=== PATIENT | female | born 1980 | race Caucasian/White ===

== ENCOUNTER 2017-02-10 10:15 | Emergency (ER) | payer SELFPAY ==
[~2017-02-10] VITALS: Ht 162.6 cm; Wt 56.7 kg
[~2017-02-10 10:15] MED LIST: NITR100C62 PO; ONDA4TAB10 SL
--- NOTE | 2017-02-10 10:49 | PHYS DOC ---
Past Medical History Past Medical History: Anemia, Depression, Kidney Stone, Other Additional Past Medical Histor: Hypoglycemia Past Surgical History: Tubal ligation Alcohol Use: Occasionally Drug Use: None Adult General Chief Complaint Chief Complaint: NAUSEA/VOMITING/DIARRHA HPI HPI Patient is a 37 year old female with a history of anemia, kidney stones, who presents today with mild right upper, mid, and lower abdominal pain that began one week ago. Patient is also complaining of intermittent episodes of nausea and vomiting for one week. She denies any chance she is , she states she 's had a tubal ligation. Denies any urgency frequency dysuria. Denies any diarrhea. Denies any hematemesis. Denies any unusual vaginal discharge or concerns for STDs. Review of Systems Review of Systems Constitutional: Denies fever or chills [] Eyes: Denies change in visual acuity, redness, or eye pain [] HENT: Denies nasal congestion or sore throat [] Respiratory: Denies cough or shortness of breath [] Cardiovascular: No additional information not addressed in HPI [] GI: mild right upper, mid, and lower abdominal pain with nausea and vomiting : Denies dysuria or hematuria [] Musculoskeletal: Denies back pain or joint pain [] Integument: Denies rash or skin lesions [] Neurologic: Denies headache, focal weakness or sensory changes [] Endocrine: Denies polyuria or polydipsia [] Current Medications Current Medications Current Medications Medications (Trade) Dose Ordered Sig/[facility] Start Time Stop Time Status Last Admin Dose Admin Famotidine (Pepcid) 20 mg 1X ONCE 02/10/17 11:00 02/10/17 11:01 DC 02/10/17 10:50 20 MG Info (Do NOT chart on this entry -- for MONITORING) 1 each PRN DAILY PRN 02/10/17 11:15 02/12/17 11:14 Iohexol (Omnipaque 240 Mg/ml) 30 ml 1X ONCE 02/10/17 11:30 02/10/17 11:31 DC Iohexol (Omnipaque 300 Mg/ml) 75 ml 1X ONCE 02/10/17 11:30 02/10/17 11:31 UNV Morphine Sulfate 5 mg 1X ONCE 02/10/17 11:00 02/10/17 11:01 DC 02/10/17 12:09 5 MG Ondansetron HCl (Zofran) 4 mg 1X ONCE 02/10/17 11:00 02/10/17 11:01 DC 02/10/17 10:51 4 MG Sodium Chloride 1,000 ml @ 1,000 mls/hr 1X ONCE 02/10/17 11:00 02/10/17 11:59 DC 02/10/17 10:50 1,000 MLS/HR Allergies Allergies Allergies Coded Allergies Type Severity Reaction Last Updated Verified latex Allergy Intermediate redness and swelling 11/01/14 No Physical Exam Physical Exam Constitutional: Well developed, well nourished, no acute distress, non-toxic appearance. [] HENT: Normocephalic, atraumatic, bilateral external ears normal, oropharynx moist, no oral exudates, nose normal. [] Eyes: PERRLA, EOMI, conjunctiva normal, no discharge. [] Neck: Normal range of motion, no tenderness, supple, no stridor. [] Cardiovascular:Heart rate regular rhythm, no murmur [] Lungs & Thorax: Bilateral breath sounds clear to auscultation [] Abdomen: Bowel sounds normal, soft, diffuse right sided abdominal tenderness both upper and lower with negative Garcia sign, negative psoas sign, negative obturator sign , no masses, no pulsatile masses. [] Skin: Warm, dry, no erythema, no rash. [] Back: No tenderness, no CVA tenderness. [] Extremities: No tenderness, no cyanosis, no clubbing, ROM intact, no edema. [] Neurologic: Alert and oriented X 3, normal motor function, normal sensory function, no focal deficits noted. [] Psychologic: Affect normal, judgement normal, mood normal. [] Current Patient Data Vital Signs Vital Signs Date Time Temp Pulse Resp B/P (MAP) Pulse Ox O2 Delivery O2 Flow Rate FiO2 02/10/17 12:31 Room Air 02/10/17 12:09 16 99 02/10/17 11:49 70 85/46 (59) 02/10/17 10:24 98.2 98.2 Lab Values Laboratory Tests Test 02/10/17 10:36 02/10/17 10:59 02/10/17 11:08 02/10/17 12:00 White Blood Count 6.6 x10^3/uL (4.0-11.0) Red Blood Count 4.21 x10^6/uL (3.50-5.40) Hemoglobin 12.6 g/dL (12.0-15.5) Hematocrit 35.6 % (36.0-47.0) L Mean Corpuscular Volume 85 fL (79-100) Mean Corpuscular Hemoglobin 30 pg (25-35) Mean Corpuscular Hemoglobin Concent 35 g/dL (31-37) Red Cell Distribution Width 12.9 % (11.5-14.5) Platelet Count 189 x10^3/uL (140-400) Neutrophils (%) (Auto) 73 % (31-73) Lymphocytes (%) (Auto) 13 % (24-48) L Monocytes (%) (Auto) 13 % (0-9) H Eosinophils (%) (Auto) 1 % (0-3) Basophils (%) (Auto) 0 % (0-3) Neutrophils # (Auto) 4.8 x10^3uL (1.8-7.7) Lymphocytes # (Auto) 0.8 x10^3/uL (1.0-4.8) L Monocytes # (Auto) 0.8 x10^3/uL (0.0-1.1) Eosinophils # (Auto) 0.1 x10^3/uL (0.0-0.7) Basophils # (Auto) 0.0 x10^3/uL (0.0-0.2) Sodium Level 140 mmol/L (136-145) Potassium Level 3.8 mmol/L (3.5-5.1) Chloride Level 104 mmol/L (98-107) Carbon Dioxide Level 29 mmol/L (21-32) Anion Gap 7 (6-14) 16 mmol/L (6-14) H Blood Urea Nitrogen 12 mg/dL (7-20) Creatinine 0.8 mg/dL (0.6-1.0) Estimated GFR (Cockcroft-Gault) 80.7 BUN/Creatinine Ratio 15 (6-20) Glucose Level 132 mg/dL (70-99) H 124 mg/dL (70-99) H Calcium Level 9.2 mg/dL (8.5-10.1) Total Bilirubin 0.4 mg/dL (0.2-1.0) Aspartate Amino Transferase (AST) 16 U/L (15-37) Alanine Aminotransferase (ALT) 20 U/L (14-59) Alkaline Phosphatase 63 U/L (46-116) Total Protein 8.1 g/dL (6.4-8.2) Albumin 3.9 g/dL (3.4-5.0) Albumin/Globulin Ratio 0.9 (1.0-1.7) L Lipase 105 U/L (73-393) Ethyl Alcohol Level < 10 mg/dL (0-10) POC Hemoglobin 12.2 g/dL (12-15) POC Hematocrit 36 % (36-40) POC Sodium 140 mmol/L (135-145) POC Potassium 3.7 mmol/L (3.5-5.0) POC Chloride 102 mmol/L (98-110) POC Total CO2 26 mmol/L (23-32) POC Blood Urea Nitrogen 10 mg/dL (8-26) POC Creatinine 0.8 mg/dL (0.5-1.4) POC Ionized Calcium (Adama) 1.29 mmol/L (1.13-1.32) POC Urine HCG, Qualitative Hcg negative (Negative) Urine Collection Type Unknown Urine Color Yellow Urine Clarity Clear Urine pH 6.0 Urine Specific Jewett 1.015 Urine Protein Negative mg/dL (NEG-TRACE) Urine Glucose (UA) Negative mg/dL (NEG) Urine Ketones (Stick) Negative mg/dL (NEG) Urine Blood Trace (NEG) Urine Nitrite Negative (NEG) Urine Bilirubin Negative (NEG) Urine Urobilinogen Dipstick 0.2 mg/dL (0.2 mg/dL) Urine Leukocyte Esterase Trace (NEG) Urine RBC 3-5 /HPF (0-2) Urine WBC 5-10 /HPF (0-4) Urine Squamous Epithelial Cells Mod /LPF Urine Bacteria Few /HPF (0-FEW) Urine Opiates Screen Neg (NEG) Urine Methadone Screen Neg (NEG) Urine Barbiturates Neg (NEG) Urine Phencyclidine Screen Neg (NEG) Urine Amphetamine/Methamphetamine Neg (NEG) Urine Benzodiazepines Screen Neg (NEG) Urine Cocaine Screen Neg (NEG) Urine Cannabinoids Screen Neg (NEG) Urine Ethyl Alcohol Neg (NEG) Laboratory Tests 02/10/17 10:36 Laboratory Tests 02/10/17 10:36 02/10/17 10:59 EKG EKG [] Radiology/Procedures Radiology/Procedures []PROCEDURE: CT ABD PELV W/ IV CONTRST ONLY CT of the abdomen and pelvis with contrast, 02/10/2017: History: Abdominal pain on the right Multidetector CT imaging was performed following an IV bolus injection of iodinated contrast material. No oral contrast material was administered for this study. Comparison is made to an exam from 11/01/2014. No hepatic abnormality is detected. The gallbladder is somewhat contracted. No gallstones are seen. The pancreas is unremarkable. The spleen is within normal limits in size. No renal or adrenal abnormality is detected. No abdominal or pelvic adenopathy is seen. The uterus is deviated to the right of midline. There is a 1.4 cm low density structure with and enhancing rim in the left adnexa which is probably an ovarian cyst. There is mildly prominent uterine vascularity on the left. The bowel loops are not dilated. There is moderate amount stool in the colon. A portion of the appendix is visualized and it shows no abnormality. No free fluid or free air is evident in the abdomen or pelvis. IMPRESSION: No acute abdominal or pelvic abnormality is detected. PQRS Compliance Statement: One or more of the following individualized dose reduction techniques were utilized for this examination: 1. Automated exposure control 2. Adjustment of the mA and/or kV according to patient size 3. Use of iterative reconstruction technique DICTATED and SIGNED BY: DILCIA GUILLEN MD DATE: 02/10/17 121 Course & Med Decision Making Course & Med Decision Making Pertinent Labs and Imaging studies reviewed. (See chart for details) Patient is in the ED with complaints of right upper, mid, and lower abdominal pain with intermittent episodes of nausea and vomiting for week. Negative urine hCG, urine analysis is negative for infection, CBC CMP lipase with no acute findings. Drug screen is negative. CT of the abdomen and pelvic was negative for any acute findings but noted for left ovarian cyst as well as moderate amount of stool in the colon. Recommended mag citrate to this patient. Recommended following up with an OB/ ENGINEERING DESIGN SUPERVISOR for the left ovarian cyst. Patient is in no distress. She was discharged in stable condition. Dragon Disclaimer Dragon Disclaimer This electronic medical record was generated, in whole or in part, using a voice recognition dictation system. Departure Departure Impression: Primary Impression: Abdominal pain Additional Impressions: Left ovarian cyst Nausea and vomiting Constipation Disposition: 01 HOME, SELF-CARE Condition: STABLE Referrals: SHAYE CALLOWAY MD (PCP) follow up in one week CASPER NAVARRO Jr, MD follow up in one week for ovarian cyst CARON HARDING MD follow up in one week Patient Instructions: Constipation, Adult, Nausea and Vomiting, [id number], Ovarian Cyst, [id number] Additional Instructions: You were seen in the emergency room for abdominal pain. Your lab work is negative for any acute findings. Your CT of the abdomen and pelvic was negative for any acute findings, but noted to have a left ovarian cyst as well as moderate amount of stool in the colon. Consider using a bowel prep like magnesium citrate. Consider taking MiraLAX every day to prevent constipation. Follow up with an STOCK BROKER for the ovarian cyst and PCP for abdominal pain or GI doctor provided. Scripts Polyethylene Glycol 3350 (MIRALAX) 17 Gm Powd.pack 1 PACKET PO DAILY, #30 PACKET 3 Refills Prov: ANNERYAN CEDILLO LAWRENCE 02/10/17 Dicyclomine Hcl (DICYCLOMINE HCL) 20 Mg Tablet 1 TAB PO TID, #30 TAB 1 Refill Prov: JULIORYAN LAWRENCE 02/10/17 Ondansetron (ZOFRAN ODT) 4 Mg Tab.rapdis 1 TAB SL Q8HRS, #15 TAB Prov: RYAN KIM APRN 02/10/17 Problem Qualifiers Primary Impression: Abdominal pain Abdominal location: right lower quadrant Qualified Codes: R10.31 - Right lower quadrant pain Additional Impressions: Nausea and vomiting Vomiting type: unspecified Vomiting Intractability: non-intractable Qualified Codes: R11.2 - Nausea with vomiting, unspecified Constipation Constipation type: unspecified constipation type Qualified Codes: K59.00 - Constipation, unspecified ANNERYAN CEDILLO LAWRENCE Feb 10, 2017 10:49
[2017-02-10 10:58] LABS: BASO % 0 % (0-3); EOS % 1 % (0-3); HEMATOCRIT 35.6 % (36.0-47.0); HEMOGLOBIN 12.6 g/dL (12.0-15.5); LYMPH # 0.8 x10^3/uL (1.0-4.8); LYMPH % 13 % (24-48); MEAN CORPUSCULAR HEMOGLOBIN 30 pg (25-35); MEAN CORPUSCULAR HGB CONC 35 g/dL (31-37); MEAN CORPUSCULAR VOLUME 85 fL (79-100); MONO % 13 % (0-9); NEUT % 73 % (31-73); PLATELET COUNT 189 x10^3/uL (140-400); RED BLOOD COUNT 4.21 x10^6/uL (3.50-5.40); RED CELL DISTRIBUTION WIDTH 12.9 % (11.5-14.5); WHITE BLOOD COUNT 6.6 x10^3/uL (4.0-11.0)
[2017-02-10] MEDS ORDERED: FAMOTIDINE 20 MG/2 ML VIAL IVP ONE (11:00)
[2017-02-10] MEDS ORDERED: IV NORMAL SALINE 1000ML BAG 1,000 ML IV ONE (11:00)
[2017-02-10] MEDS ORDERED: ONDANSETRON PF 4 MG/2 ML VIAL. IV ONE (11:00)
[2017-02-10] MEDS ORDERED: MORPHINE SULFATE 10 MG/ML VIAL. IV ONE (11:00)
[2017-02-10 11:03] LABS: POTASSIUM ISTAT 3.7 mmol/L (3.5-5.0)
[2017-02-10 11:14] LABS: CALCIUM 9.2 mg/dL (8.5-10.1); CREATININE 0.8 mg/dL (0.6-1.0); GFR 80.7; POTASSIUM 3.8 mmol/L (3.5-5.1)
[2017-02-10] MEDS ORDERED: CONTRAST GIVEN MC PRN (11:15)
[2017-02-10 11:21] LABS: ALBUMIN 3.9 g/dL (3.4-5.0); ALBUMIN/GLOBULIN RATIO 0.9 (1.0-1.7); TOTAL BILIRUBIN 0.4 mg/dL (0.2-1.0); TOTAL PROTEIN 8.1 g/dL (6.4-8.2)
[2017-02-10] MEDS ORDERED: IOHEXOL 300 MG/ML 75 ML VIAL IV ONE ×2 (11:30)
[2017-02-10] MEDS ORDERED: IOHEXOL 240 MG/ML 50ML VIAL. PO ONE (11:30)
[2017-02-10 12:11] LABS: BILIRUBIN,URINE NEGATIVE (NEG); GLUCOSE,URINE NEGATIVE (NEG); NITRITE,URINE NEGATIVE (NEG); PROTEIN,URINE NEGATIVE (NEG-TRACE); UROBILINOGEN,URINE 0.2 mg/dL (0.2 mg/dL)
[2017-02-10 12:18] LABS: BARBITURATES NEG (NEG); BENZODIAZEPINES NEG (NEG); CANNABINOIDS NEG (NEG); COCAINE NEG (NEG); METHADONE NEG (NEG); OPIATES NEG (NEG); PHENCYCLIDINE NEG (NEG); SQUAMOUS EPITHELIAL CELL,UR MOD /LPF
[2017-02-10 12:19] LABS: BACTERIA,URINE FEW /HPF (0-FEW)
--- NOTE | 2017-02-10 12:23 | RAD ---
CT of the abdomen and pelvis with contrast, 02/10/2017: History: Abdominal pain on the right Multidetector CT imaging was performed following an IV bolus injection of iodinated contrast material. No oral contrast material was administered for this study. Comparison is made to an exam from 11/01/2014. No hepatic abnormality is detected. The gallbladder is somewhat contracted. No gallstones are seen. The pancreas is unremarkable. The spleen is within normal limits in size. No renal or adrenal abnormality is detected. No abdominal or pelvic adenopathy is seen. The uterus is deviated to the right of midline. There is a 1.4 cm low density structure with and enhancing rim in the left adnexa which is probably an ovarian cyst. There is mildly prominent uterine vascularity on the left. The bowel loops are not dilated. There is moderate amount stool in the colon. A portion of the appendix is visualized and it shows no abnormality. No free fluid or free air is evident in the abdomen or pelvis. IMPRESSION: No acute abdominal or pelvic abnormality is detected. PQRS Compliance Statement: One or more of the following individualized dose reduction techniques were utilized for this examination: 1. Automated exposure control 2. Adjustment of the mA and/or kV according to patient size 3. Use of iterative reconstruction technique
[2017-02-10] MEDS ORDERED: DICY20TA3 PO (12:49)
[2017-02-10] MEDS ORDERED: ONDA4TAB10 SL (12:49)
[2017-02-10] MEDS ORDERED: POLY17PO29 PO (12:49)
[2017-02-10 13:00] VITALS: BP 91/50
== END 2017-02-10 13:11 | disposition home or self-care (01) ==
LOC: ER 10:15
DX: N83.202 Unspecified ovarian cyst, left side (principal); K59.00 Constipation, unspecified; Z87.442 Personal history of urinary calculi; Z86.2 Personal history of diseases of the blood and blood-forming organs and certain disorders involving the immune mechanism; Z91.040 Latex allergy status
CPT/HCPCS: 36415; 74177; 80047; 80053; 80307; 81001; 81025; 83690; 85027; 96361; 96374; 96375; 99285; G0480; J2270; J2405; J7030; Q9967; S0028; G0479

== ENCOUNTER 2017-02-14 08:37 | Emergency (ER) | payer SELFPAY ==
[~2017-02-14] VITALS: Ht 162.6 cm; Wt 59.0 kg
[~2017-02-14 08:37] MED LIST changes: +DICY20TA3 PO; +POLY17PO29 PO
[2017-02-14] MEDS ORDERED: IV NORMAL SALINE 1000ML BAG 1,000 ML IV ONE (09:30)
[2017-02-14] MEDS ORDERED: ONDANSETRON PF 4 MG/2 ML VIAL. IV ONE (09:30)
[2017-02-14] MEDS ORDERED: LIDO:MAALOX:BENADRYL 1:1:1 180 ML BOTTLE. PO ONE ×2 (09:30→10:30)
[2017-02-14 10:39] VITALS: BP 108/60
[2017-02-14] MEDS ORDERED: IBUPROFEN 800 MG TABLET. PO ONE (11:15)
[2017-02-14] MEDS ORDERED: TETR250C3 PO (11:37)
[2017-02-14] MEDS ORDERED: HYDR-971 PO (11:37)
--- NOTE | 2017-02-14 11:38 | PHYS DOC ---
Past Medical History Past Medical History: Anemia, Depression, Kidney Stone, Other Additional Past Medical Histor: Hypoglycemia Past Surgical History: Tubal ligation Alcohol Use: Occasionally Drug Use: None Adult General Chief Complaint Chief Complaint: DENTAL PROBLEM HPI HPI Patient is a 37 year old female who drove her cell to the ED with the complaint that her gums hurt and are very swollen, she's had a fever, and nausea and vomiting. Her gums have been hurting for a few days, they're very swollen, they're painful. No pain goes through her mouth into her throat and into her neck and into both ears. She's had fever and also has dry heaves and vomiting. She's never had this before. She has not taken any medications for this. She is miserable from the pain mostly. She was seen recently with abdominal pain and found to have an ovarian cyst. She has not been on antibiotics recently. Review of Systems Review of Systems Constitutional: As in history of present illness Eyes: Denies change in visual acuity, redness, or eye pain [] HENT: As in history of present illness GI: Nausea and vomiting as in history of present illness Current Medications Current Medications Current Medications Medications (Trade) Dose Ordered Sig/[facility] Start Time Stop Time Status Last Admin Dose Admin Ibuprofen (Motrin) 800 mg 1X ONCE 02/14/17 11:15 02/14/17 11:16 DC 02/14/17 11:17 800 MG Multi-Ingredient Mouthwash/Gargle (Magic Mouthwash) 30 ml 1X ONCE 02/14/17 10:30 02/14/17 10:31 DC 02/14/17 10:30 30 ML Ondansetron HCl (Zofran) 4 mg 1X ONCE 02/14/17 09:30 02/14/17 09:31 DC 02/14/17 09:52 4 MG Sodium Chloride 1,000 ml @ 1,000 mls/hr 1X ONCE 02/14/17 09:30 02/14/17 10:29 DC 02/14/17 09:52 1,000 MLS/HR Allergies Allergies Allergies Coded Allergies Type Severity Reaction Last Updated Verified latex Allergy Intermediate redness and swelling 11/01/14 No Physical Exam Physical Exam Constitutional: Well developed, well nourished, having dry heaves, appears uncomfortable HENT: Normocephalic, atraumatic, bilateral external ears normal, bilateral EACs and bilateral TMs normal. Lips normal, gums are diffusely significantly swollen and appear consistent with gingivitis. There is no localized area of abscess or other lesion. Teeth are in moderate condition. Tongue normal, tonsils, uvula, soft palate, oropharynx normal in appearance. Eyes: conjunctiva normal, no discharge. [] Neck: Normal range of motion, diffusely tender lymphadenopathy submandibular and anterior cervical bilaterally Cardiovascular:Heart rate regular rhythm, no murmur [] Lungs & Thorax: Bilateral breath sounds clear to auscultation [] Skin: Warm, dry, no erythema, no rash. [] Extremities: No tenderness, no cyanosis, no clubbing, ROM intact, no edema. [] Neurologic: Alert and oriented X 3, normal motor function, normal sensory function, no focal deficits noted. [] Current Patient Data Vital Signs Vital Signs Date Time Temp Pulse Resp B/P (MAP) Pulse Ox O2 Delivery O2 Flow Rate FiO2 02/14/17 10:39 88 22 108/60 (76) 97 Room Air 02/14/17 09:00 99.4 99.4 EKG EKG [] Radiology/Procedures Radiology/Procedures [] Course & Med Decision Making Course & Med Decision Making Pertinent Labs and Imaging studies reviewed. (See chart for details) 37-year-old female presents with acute onset of fulminant gingivitis, also fever , vomiting, which I do attribute to the gingivitis infection. She was given IV fluids and nausea medications in the ED. She felt better. We will discharge her with antibiotics and pain meds with a recommendation for dental follow-up. Addendum: I originally wrote her for tetracycline, but the pharmacist called me and they do not have that so we switch that to doxycycline 100 mg twice a day for 10 days. [] Dragon Disclaimer Dragon Disclaimer This electronic medical record was generated, in whole or in part, using a voice recognition dictation system. Departure Departure Impression: Primary Impression: Gingivitis Additional Impressions: Nausea & vomiting Dehydration Disposition: 01 HOME, SELF-CARE Condition: IMPROVED Referrals: SHAYE CALLOWAY MD (PCP) Patient Instructions: Gingivitis, [id number] Additional Instructions: It's very important to follow up with a dentist as soon as possible. Call tomorrow for an appointment. We will treat with an antibiotic, tetracycline. It's important that you feel this right away and take 4 times a day. For pain, ibuprofen [id number], or if needed, I prescribed hydrocodone, which is an opiate and will be sedating and constipating. Do not take while driving. Use sparingly. Scripts Hydrocodone/Apap 5-325 (NORCO 5-325 TABLET) 1 Each Tablet 1-2 TAB PO Q4-6HRS for dental pain, #10 TAB Prov: JAXSON JUAREZ MD 02/14/17 Tetracycline Hcl (TETRACYCLINE HCL) 250 Mg Capsule 250 MG PO QID for GINGIVITIS for 10 Days, #40 CAP Prov: JAXSON JUAREZ MD 02/14/17 Problem Qualifiers JAXSON JUAREZ MD Feb 14, 2017 11:38
== END 2017-02-14 11:47 | disposition home or self-care (01) ==
LOC: ER 08:37
DX: K05.10 Chronic gingivitis, plaque induced (principal); R11.2 Nausea with vomiting, unspecified; E86.0 Dehydration; R10.9 Unspecified abdominal pain; F32.9 Major depressive disorder, single episode, unspecified; Z91.040 Latex allergy status; Z87.442 Personal history of urinary calculi
CPT/HCPCS: 96361; 96374; 99284; J2405; J7030

== ENCOUNTER → 2017-08-25 | Outpatient (CLI) | payer OTHER | END | disposition home or self-care (01) | LOC: US 08:49 | DX: R10.9 Unspecified abdominal pain (principal) | CPT/HCPCS: 76705 ==

== ENCOUNTER → 2017-09-24 | Outpatient (CLI) | payer OTHER ==
[2017-09-24] MEDS: SINCALIDE 1.22 MCG in IV NORMAL SALINE 50ML 30 ML IV (10:43)
== END | disposition home or self-care (01) ==
LOC: NM 08:53
DX: R10.11 Right upper quadrant pain (principal); R11.2 Nausea with vomiting, unspecified
CPT/HCPCS: 78226; 96374; 96375; A9537; J2805

== ENCOUNTER 2018-11-04 22:30 | Emergency (ER) | payer OTHER ==
[~2018-11-04] VITALS: Ht 160 cm; Wt 63.5 kg
[~2018-11-04 22:30] MED LIST changes: +HYDR-3164 PO; +TETR250C75 PO
--- NOTE | 2018-11-04 23:28 | PHYS DOC ---
Past Medical History Past Medical History: Anemia, Depression, Kidney Stone, Other Additional Past Medical Histor: Hypoglycemia Past Surgical History: Tubal ligation Alcohol Use: Occasionally Drug Use: None Adult General Chief Complaint Chief Complaint: CHEST PAIN HPI HPI Patient is a 38 year old female who presents with chest pain and shortness of breath. Patient states that she was just standing up in the hallway around eight o'clock tonight when she developed chest tightness, palpitations, and shortness of breath. Patient states that she has had similar episodes in the past, however, they were not this severe which prompted her to come to the ED for an evaluation. Patient further describes the pain as a constant pressure sensation which she currently rates to be 9/10. She states that the chest pain radiates to her left shoulder. Patient reports nausea but denies vomiting. Patient states that her symptoms are worse with movement. Denies any alleviating factors. Patient states that she is currently under a significant amount of stress and is feeling very anxious. Review of Systems Review of Systems Constitutional: Denies fever or chills Eyes: Denies change in visual acuity or eye pain HENT: Denies nasal congestion or sore throat Respiratory: Denies cough. Reports shortness of breath. Cardiovascular: Reports chest pain and palpitations GI: Denies abdominal pain, vomiting, or diarrhea : Denies dysuria or hematuria Musculoskeletal: Denies back pain or joint pain Integument: Denies rash or skin lesions Neurologic: Denies focal weakness or sensory changes Complete systems were reviewed and found to be within normal limits, except as documented in this note. Current Medications Current Medications Current Medications Medications (Trade) Dose Ordered Sig/[facility] Start Time Stop Time Status Last Admin Dose Admin Lorazepam (Ativan) 0.5 mg 1X ONCE 11/04/18 23:45 11/04/18 23:46 DC 11/04/18 23:59 0.5 MG Sodium Chloride 500 ml @ 500 mls/hr 1X ONCE 11/05/18 01:15 11/05/18 02:14 DC 11/05/18 01:15 500 MLS/HR Allergies Allergies Allergies Coded Allergies Type Severity Reaction Last Updated Verified latex Allergy Intermediate redness and swelling 11/01/14 No Physical Exam Physical Exam Constitutional: Well developed, well nourished, no acute distress, non-toxic appearance. HENT: Normocephalic, atraumatic, oropharynx moist, nose normal. Eyes: PERRL, conjunctiva normal, no discharge. Neck: Normal range of motion, supple, no stridor. Cardiovascular: Heart rate regular rhythm, no murmur Lungs & Thorax: Bilateral breath sounds clear to auscultation Abdomen: Soft, no tenderness on palpation. Skin: Warm, dry, no rash. Back: No tenderness, no CVA tenderness. Extremities: No tenderness, ROM intact, no edema. Neurologic: Alert and oriented X3, normal motor function, normal sensory function, no focal deficits noted. Psychologic: Affect anxious. Speech normal. Current Patient Data Vital Signs Vital Signs Date Time Temp Pulse Resp B/P (MAP) Pulse Ox O2 Delivery O2 Flow Rate FiO2 11/05/18 02:31 74 101/55 (70) 99 11/04/18 22:43 98.3 18 Room Air 98.3 Lab Values Laboratory Tests Test 11/04/18 22:40 11/05/18 01:15 White Blood Count 7.4 x10^3/uL (4.0-11.0) Red Blood Count 4.02 x10^6/uL (3.50-5.40) Hemoglobin 11.5 g/dL (12.0-15.5) L Hematocrit 34.2 % (36.0-47.0) L Mean Corpuscular Volume 85 fL (79-100) Mean Corpuscular Hemoglobin 29 pg (25-35) Mean Corpuscular Hemoglobin Concent 34 g/dL (31-37) Red Cell Distribution Width 13.0 % (11.5-14.5) Platelet Count 218 x10^3/uL (140-400) Neutrophils (%) (Auto) 67 % (31-73) Lymphocytes (%) (Auto) 24 % (24-48) Monocytes (%) (Auto) 6 % (0-9) Eosinophils (%) (Auto) 2 % (0-3) Basophils (%) (Auto) 1 % (0-3) Neutrophils # (Auto) 5.0 x10^3uL (1.8-7.7) Lymphocytes # (Auto) 1.8 x10^3/uL (1.0-4.8) Monocytes # (Auto) 0.5 x10^3/uL (0.0-1.1) Eosinophils # (Auto) 0.1 x10^3/uL (0.0-0.7) Basophils # (Auto) 0.0 x10^3/uL (0.0-0.2) Sodium Level 138 mmol/L (136-145) Potassium Level 3.9 mmol/L (3.5-5.1) Chloride Level 100 mmol/L (98-107) Carbon Dioxide Level 26 mmol/L (21-32) Anion Gap 12 (6-14) Blood Urea Nitrogen 18 mg/dL (7-20) Creatinine 0.8 mg/dL (0.6-1.0) Estimated GFR (Cockcroft-Gault) 80.3 BUN/Creatinine Ratio 23 (6-20) H Glucose Level 101 mg/dL (70-99) H Calcium Level 9.4 mg/dL (8.5-10.1) Magnesium Level 1.9 mg/dL (1.8-2.4) Total Bilirubin 0.2 mg/dL (0.2-1.0) Aspartate Amino Transferase (AST) 16 U/L (15-37) Alanine Aminotransferase (ALT) 23 U/L (14-59) Alkaline Phosphatase 63 U/L (46-116) Troponin I Quantitative < 0.017 ng/mL (0.000-0.055) < 0.017 ng/mL (0.000-0.055) LO-Qpp-F-Type Natriuretic Peptide 21 pg/mL (0-124) Total Protein 7.5 g/dL (6.4-8.2) Albumin 3.7 g/dL (3.4-5.0) Albumin/Globulin Ratio 1.0 (1.0-1.7) Lipase 104 U/L (73-393) Laboratory Tests 11/04/18 22:40 Laboratory Tests 11/04/18 22:40 EKG EKG @2234 NSR at 75bpm, NO ST elevation Radiology/Procedures Radiology/Procedures 2 view CXR (preliminary interpretation by ED physician) reveals no acute findings Course & Med Decision Making Course & Med Decision Making Patient is a 38 year old female who presents to the ED complaining of chest pain and shortness of breath. Patient noted to be anxious on exam and was subsequently treated with 0.5mg Ativan. Pertinent Labs and Imaging studies reviewed. (See chart for details). Both initial and repeat troponin are negative. CXR does not reveal any acute process. Patient stable for discharge with outpatient follow-up with PCP. Discussed findings and plan with patient and family, who acknowledge understanding and agreement. Patient given referral for cardiology for follow up. Dragon Disclaimer Dragon Disclaimer This electronic medical record was generated, in whole or in part, using a voice recognition dictation system. Departure Departure Impression: Primary Impression: Atypical chest pain Disposition: 01 HOME, SELF-CARE Condition: STABLE Referrals: ERASMO WHALEY APRN (PCP) HILL WERNER MD Patient Instructions: Chest Pain (Nonspecific), [id number] FRANK DUVALL DO Nov 04, 2018 23:27
[2018-11-04 23:45] LABS: BASO % 1 % (0-3); EOS # 0.1 x10^3/uL (0.0-0.7); EOS % 2 % (0-3); HEMATOCRIT 34.2 % (36.0-47.0); HEMOGLOBIN 11.5 g/dL (12.0-15.5); LYMPH # 1.8 x10^3/uL (1.0-4.8); LYMPH % 24 % (24-48); MEAN CORPUSCULAR HEMOGLOBIN 29 pg (25-35); MEAN CORPUSCULAR HGB CONC 34 g/dL (31-37); MEAN CORPUSCULAR VOLUME 85 fL (79-100); MONO # 0.5 x10^3/uL (0.0-1.1); MONO % 6 % (0-9); NEUT % 67 % (31-73); PLATELET COUNT 218 x10^3/uL (140-400); RED BLOOD COUNT 4.02 x10^6/uL (3.50-5.40); WHITE BLOOD COUNT 7.4 x10^3/uL (4.0-11.0)
[2018-11-04 23:56] LABS: CALCIUM 9.4 mg/dL (8.5-10.1); CREATININE 0.8 mg/dL (0.6-1.0); GFR 80.3; POTASSIUM 3.9 mmol/L (3.5-5.1)
[2018-11-05 00:02] LABS: ALBUMIN 3.7 g/dL (3.4-5.0); MAGNESIUM 1.9 mg/dL (1.8-2.4); TOTAL BILIRUBIN 0.2 mg/dL (0.2-1.0); TOTAL PROTEIN 7.5 g/dL (6.4-8.2)
[2018-11-05] MEDS ORDERED: IV NORMAL SALINE 500ML BAG 500 ML IV ONE (01:15)
[2018-11-05 02:31] VITALS: BP 101/55
--- NOTE | 2018-11-05 07:52 | RAD ---
Exam performed: 2 views of the chest. Indication: chest pain Date of Service: 11/04/2018 11:31 PM . Comparison : One view chest from 06/02/2016 Findings: PA and lateral radiographs of the chest reveal a normal cardiomediastinal contour. The lungs are clear. No pleural fluid is seen. The visualized osseous structures are unremarkable. Impression: No acute cardiopulmonary process seen. Electronically signed by: Cleopatra Alaniz MD (11/05/2018 7:49 AM) [facility]
--- NOTE | 2018-11-05 14:15 | EKG ---
[facility] [address] [place] [address] Test Date: 2018-11-04 Test Time: 22:34:36 Pat Name: DEISY MERA Department: Room: Gender: F Gut Dropper: : 1980 Requested By: FRANK DUVALL Order Number: [id number] Reading MD: Geoff Townsend MD Measurements Intervals [place] Rate: 75 P: 49 KS: 144 QRS: 47 QRSD: 72 T: 24 QT: 346 QTc: 389 Interpretive Statements SINUS RHYTHM Electronically Signed On 11-08-2018 12:20:16 CDT by Geoff Townsend MD
== END 2018-11-05 02:35 | disposition home or self-care (01) ==
LOC: ER 22:30
DX: R07.89 Other chest pain (principal); R06.02 Shortness of breath; R00.2 Palpitations; F41.9 Anxiety disorder, unspecified; F32.9 Major depressive disorder, single episode, unspecified; Z91.040 Latex allergy status
CPT/HCPCS: 36415; 71046; 80053; 83690; 83735; 83880; 84484; 85025; 93005; 96374; 99285; J2060; J7040

== ENCOUNTER → 2019-05-02 | Outpatient (CLI) | payer OTHER ==
--- NOTE | 2019-05-02 17:51 | KCIC ---
PELVIS COMPLETE History: Pelvic pain Comparison: None. Findings: Multiple transabdominal sonographic images of pelvis are submitted. Uterus measured 8.1 x 2.8 x 5 cm. Right ovary measured 2.9 x 1.7 x 2.7 cm with normal low resistance vascularity. Left ovary measured 2.1 x 1.4 x 3 cm with normal low resistance vascularity. No free fluid is demonstrated. Endometrium is within normal limits about 0.3 cm. Impression: 1. No significant abnormality is demonstrated. Electronically signed by: Jonel Carr MD (05/02/2019 5:49 PM) [id number]
== END | disposition home or self-care (01) ==
LOC: KCIC US 12:15
PROVIDERS: ATTEND Nurse Practitioner Family
DX: R10.2 Pelvic and perineal pain (principal)
CPT/HCPCS: 76856

== ENCOUNTER 2019-12-06 22:41 | Emergency (ER) | payer OTHER ==
[~2019-12-06] VITALS: Ht 157.5 cm; Wt 60.0 kg
[2019-12-06] MEDS ORDERED: fentaNYL PF VIAL 100 MCG/2 ML VIAL IV PRN (23:00)
[2019-12-06] MEDS ORDERED: IV NORMAL SALINE 1000ML BAG 1,000 ML IV SCH (23:00)
[2019-12-06 23:07] LABS: BASO % 0 % (0-3); EOS # 0.2 x10^3/uL (0.0-0.7); EOS % 2 % (0-3); HEMATOCRIT 35.2 % (36.0-47.0); HEMOGLOBIN 12.4 g/dL (12.0-15.5); LYMPH % 23 % (24-48); MEAN CORPUSCULAR HEMOGLOBIN 30 pg (25-35); MEAN CORPUSCULAR HGB CONC 35 g/dL (31-37); MEAN CORPUSCULAR VOLUME 85 fL (79-100); MONO # 0.7 x10^3/uL (0.0-1.1); MONO % 8 % (0-9); NEUT # 5.9 x10^3/uL (1.8-7.7); NEUT % 67 % (31-73); PLATELET COUNT 251 x10^3/uL (140-400); RED BLOOD COUNT 4.15 x10^6/uL (3.50-5.40); RED CELL DISTRIBUTION WIDTH 13.1 % (11.5-14.5); WHITE BLOOD COUNT 8.8 x10^3/uL (4.0-11.0)
[2019-12-06 23:09] LABS: BILIRUBIN,URINE NEGATIVE (NEG); CLARITY,URINE CLEAR; COLOR,URINE YELLOW; NITRITE,URINE NEGATIVE (NEG); PROTEIN,URINE NEGATIVE (NEG-TRACE)
[2019-12-06 23:14] LABS: BACTERIA,URINE FEW /HPF (0-FEW); CALCIUM 8.6 mg/dL (8.5-10.1); CREATININE 0.8 mg/dL (0.6-1.0); GFR 79.9; POTASSIUM 3.7 mmol/L (3.5-5.1); RBC,URINE OCC /HPF (0-2); SQUAMOUS EPITHELIAL CELL,UR MOD /LPF
[2019-12-06 23:15] LABS: AMPHETAMINE/METHAMPHETAMINE NEG (NEG); BARBITURATES NEG (NEG); BENZODIAZEPINES NEG (NEG); CANNABINOIDS NEG (NEG); COCAINE NEG (NEG); METHADONE NEG (NEG); OPIATES NEG (NEG); PHENCYCLIDINE NEG (NEG)
[2019-12-06] MEDS ORDERED: ONDANSETRON PF 4 MG/2 ML VIAL. IVP ONE (23:15)
[2019-12-06 23:23] LABS: ALBUMIN 3.8 g/dL (3.4-5.0); ALBUMIN/GLOBULIN RATIO 1.1 (1.0-1.7); TOTAL BILIRUBIN 0.3 mg/dL (0.2-1.0); TOTAL PROTEIN 7.4 g/dL (6.4-8.2)
--- NOTE | 2019-12-06 23:36 | PHYS DOC ---
Past Medical History Past Medical History: Anemia, Depression, Kidney Stone, Other Additional Past Medical Histor: Hypoglycemia Past Surgical History: Tubal ligation Smoking Status: Never Smoker Alcohol Use: Occasionally Drug Use: None General Adult EDM: Chief Complaint: HYPERGLYCEMIA HPI: HPI: Patient is a 39 year old female who presents with complaint of elevated blood s ugar with nausea and vomiting. Patient states that nausea and vomiting started yesterday and she noticed her blood sugar was running high today at over 200. Patient states that she normally runs between 90 and 120. She states that she has had difficulty keeping anything down today. Patient indicates that she did not take her diabetes medication today. She denies chest pain or shortness of breath. She does indicate that she has right-sided abdominal pain. She rates that pain at an 8 out of 10. [] Review of Systems: Review of Systems: Constitutional: Denies fever or chills. [] Respiratory: Denies cough or shortness of breath. [] Cardiovascular: Denies chest pain or edema. [] GI: Complains of right-sided abdominal pain with nausea and vomiting. [] Neurologic: Denies headache, focal weakness or sensory changes. [] A full 10 point review of systems has been reviewed and is otherwise negative. Heart Score: Risk Factors: Risk Factors: DM, Current or recent (<one month) smoker, HTN, HLP, family history of CAD, obesity. Risk Scores: Score 0 - 3: 2.5% MACE over next 6 weeks - Discharge Home Score 4 - 6: 20.3% MACE over next 6 weeks - Admit for Clinical Observation Score 7 - 10: 72.7% MACE over next 6 weeks - Early Invasive Strategies Current Medications: Current Medications Medications (Trade) Dose Ordered Sig/Mariajose Start Time Stop Time Status Last Admin Dose Admin Fentanyl Citrate (Fentanyl 2ml Vial) 25 mcg PRN Q15MIN PRN 12/06/19 23:00 12/07/19 22:59 Ondansetron HCl (Zofran) 4 mg 1X ONCE 12/06/19 23:15 12/06/19 23:16 DC Sodium Chloride 1,000 ml @ 1,000 mls/hr Q1H 12/06/19 23:00 12/06/19 23:59 Allergies: Allergies: Allergies Coded Allergies Type Severity Reaction Last Updated Verified latex Allergy Intermediate redness and swelling 11/01/14 No Physical Exam: PE: Constitutional: Well developed, well nourished, no acute distress, non-toxic appearance. [] HENT: Normocephalic, atraumatic, bilateral external ears normal, oropharynx moist, no oral exudates, nose normal. [] Eyes: PERRLA, EOMI, conjunctiva normal, no discharge. [] Neck: Normal range of motion, no tenderness, supple, no stridor. [] Cardiovascular: Regular rate and rhythm [] Lungs & Thorax: Bilateral breath sounds clear to auscultation [] Abdomen: Bowel sounds normal, soft, with right upper quadrant tenderness. [] Skin: Warm, dry, no erythema, no rash. [] Extremities: No tenderness, no cyanosis, no clubbing, ROM intact, no edema. [] Neurologic: Alert and oriented X 3, no focal deficits noted. [] Current Patient Data: Labs: Laboratory Tests Test 12/06/19 22:55 12/06/19 23:01 White Blood Count 8.8 x10^3/uL (4.0-11.0) Red Blood Count 4.15 x10^6/uL (3.50-5.40) Hemoglobin 12.4 g/dL (12.0-15.5) Hematocrit 35.2 % (36.0-47.0) L Mean Corpuscular Volume 85 fL (79-100) Mean Corpuscular Hemoglobin 30 pg (25-35) Mean Corpuscular Hemoglobin Concent 35 g/dL (31-37) Red Cell Distribution Width 13.1 % (11.5-14.5) Platelet Count 251 x10^3/uL (140-400) Neutrophils (%) (Auto) 67 % (31-73) Lymphocytes (%) (Auto) 23 % (24-48) L Monocytes (%) (Auto) 8 % (0-9) Eosinophils (%) (Auto) 2 % (0-3) Basophils (%) (Auto) 0 % (0-3) Neutrophils # (Auto) 5.9 x10^3/uL (1.8-7.7) Lymphocytes # (Auto) 2.0 x10^3/uL (1.0-4.8) Monocytes # (Auto) 0.7 x10^3/uL (0.0-1.1) Eosinophils # (Auto) 0.2 x10^3/uL (0.0-0.7) Basophils # (Auto) 0.0 x10^3/uL (0.0-0.2) Urine Collection Type Unknown Urine Color Yellow Urine Clarity Clear Urine pH 7.0 (<5.0-8.0) Urine Specific [place] 1.010 (1.000-1.030) Urine Protein Negative mg/dL (NEG-TRACE) Urine Glucose (UA) Negative mg/dL (NEG) Urine Ketones (Stick) Negative mg/dL (NEG) Urine Blood Negative (NEG) Urine Nitrite Negative (NEG) Urine Bilirubin Negative (NEG) Urine Urobilinogen Dipstick 1.0 mg/dL (0.2 mg/dL) Urine Leukocyte Esterase Negative (NEG) Urine RBC Occ /HPF (0-2) Urine WBC 1-4 /HPF (0-4) Urine Squamous Epithelial Cells Mod /LPF Urine Bacteria Few /HPF (0-FEW) Sodium Level 140 mmol/L (136-145) Potassium Level 3.7 mmol/L (3.5-5.1) Chloride Level 103 mmol/L (98-107) Carbon Dioxide Level 31 mmol/L (21-32) Anion Gap 6 (6-14) Blood Urea Nitrogen 12 mg/dL (7-20) Creatinine 0.8 mg/dL (0.6-1.0) Estimated GFR (Cockcroft-Gault) 79.9 BUN/Creatinine Ratio 15 (6-20) Glucose Level 103 mg/dL (70-99) H Calcium Level 8.6 mg/dL (8.5-10.1) Total Bilirubin 0.3 mg/dL (0.2-1.0) Aspartate Amino Transferase (AST) 15 U/L (15-37) Alanine Aminotransferase (ALT) 19 U/L (14-59) Alkaline Phosphatase 59 U/L (46-116) Total Protein 7.4 g/dL (6.4-8.2) Albumin 3.8 g/dL (3.4-5.0) Albumin/Globulin Ratio 1.1 (1.0-1.7) Lipase 103 U/L (73-393) Urine Opiates Screen Neg (NEG) Urine Methadone Screen Neg (NEG) Urine Barbiturates Neg (NEG) Urine Phencyclidine Screen Neg (NEG) Urine Amphetamine/Methamphetamine Neg (NEG) Urine Benzodiazepines Screen Neg (NEG) Urine Cocaine Screen Neg (NEG) Urine Cannabinoids Screen Neg (NEG) Urine Ethyl Alcohol Neg (NEG) POC Urine HCG, Qualitative Hcg negative (Negative) Laboratory Tests 12/06/19 22:55 Laboratory Tests 12/06/19 22:55 EKG: EKG: [] Radiology/Procedures: Radiology/Procedures: [] Impression: PROCEDURE: CT ABD PELV W/ IV CONTRST ONLY CT scan of the abdomen and pelvis with contrast 12/07/2019 CLINICAL HISTORY: Right lower quadrant abdominal pain. TECHNIQUE: After the intravenous administration of 75 cc of Omnipaque 350, contiguous, 5 mm axial sections were obtained through the abdomen and pelvis. One or more of the following individualized dose reduction techniques were utilized for this study: 1. Automated exposure control. 2. Adjustment of the mA and/or kV according to patient size. 3. Use of iterative reconstruction technique. FINDINGS: Images through the lung bases demonstrate minimal dependent subsegmental atelectasis bilaterally. The liver, spleen, pancreas, adrenal glands and kidneys are within normal limits. The abdominal aorta tapers normally. Surgical clips are seen within the gallbladder fossa consistent with a cholecystectomy. No free fluid or free air is seen within the abdomen. Air and stool are seen throughout the colon. There is no evidence of bowel obstruction. The appendix is well-visualized and is within normal limits. Images through the pelvis demonstrate the urinary bladder distended with urine. No adnexal mass is seen. No free fluid is noted. Very mild S-shaped curvature of the thoracolumbar spine is seen. IMPRESSION: No acute abnormality is seen. Electronically signed by: Julio Castle MD (12/07/2019 1:42 AM) [id number] Course & Med Decision Making: Course & Med Decision Making Pertinent Labs and Imaging studies reviewed. (See chart for details) [] [place] Disclaimer: Dragon Disclaimer: This electronic medical record was generated, in whole or in part, using a voice recognition dictation system. Departure Departure Impression: Primary Impression: Abdominal pain Qualified Codes: R10.9 - Unspecified abdominal pain Disposition: 01 HOME, SELF-CARE Condition: STABLE Referrals: ERASMO WHALEY APRN (PCP) Patient Instructions: Abdominal Pain Scripts Ondansetron (ONDANSETRON ODT) 4 Mg Tab.rapdis 1 TAB PO PRN Q6-8HRS PRN for NAUSEA, #15 TAB Prov: SUMA LOTT Jr. DO 12/07/19 Dicyclomine Hcl (DICYCLOMINE HCL) 20 Mg Tablet 1 TAB PO TID PRN for abdominal pain, #30 TAB Prov: SUMA LOTT Jr. DO 12/07/19 SUMA LOTT Jr. DO December 06, 2019 23:36
[2019-12-07 00:10] LABS: BASE EXCESS ABG 0 mmol/L (-3-3); HCO3 ABG 26 mmol/L (21-28); PCO2 ABG 45 mmHg (35-46); PO2 ABG 90 mmHg (75-108); SAT O2 ABG 96 % (92-99)
[2019-12-07 00:11] LABS: FIO2 ABG 21
[2019-12-07] MEDS ORDERED: CONTRAST GIVEN. MC PRN (01:00)
[2019-12-07] MEDS ORDERED: IOHEXOL 300 MG/ML 100ML VIAL. IV ONE (01:30)
--- NOTE | 2019-12-07 01:45 | RAD ---
CT scan of the abdomen and pelvis with contrast 12/07/2019 CLINICAL HISTORY: Right lower quadrant abdominal pain. TECHNIQUE: After the intravenous administration of 75 cc of Omnipaque 350, contiguous, 5 mm axial sections were obtained through the abdomen and pelvis. One or more of the following individualized dose reduction techniques were utilized for this study: 1. Automated exposure control. 2. Adjustment of the mA and/or kV according to patient size. 3. Use of iterative reconstruction technique. FINDINGS: Images through the lung bases demonstrate minimal dependent subsegmental atelectasis bilaterally. The liver, spleen, pancreas, adrenal glands and kidneys are within normal limits. The abdominal aorta tapers normally. Surgical clips are seen within the gallbladder fossa consistent with a cholecystectomy. No free fluid or free air is seen within the abdomen. Air and stool are seen throughout the colon. There is no evidence of bowel obstruction. The appendix is well-visualized and is within normal limits. Images through the pelvis demonstrate the urinary bladder distended with urine. No adnexal mass is seen. No free fluid is noted. Very mild S-shaped curvature of the thoracolumbar spine is seen. IMPRESSION: No acute abnormality is seen. Electronically signed by: Julio Castle MD (12/07/2019 1:42 AM) [id number]
[2019-12-07] MEDS ORDERED: DICY20TA3 PO (01:50)
[2019-12-07] MEDS ORDERED: ONDA4TAB12 PO (01:50)
[2019-12-07 02:00] VITALS: BP 87/62
== END 2019-12-07 02:02 | disposition home or self-care (01) ==
LOC: ER 22:41
DX: R10.11 Right upper quadrant pain (principal); R11.2 Nausea with vomiting, unspecified; F32.9 Major depressive disorder, single episode, unspecified; Z87.442 Personal history of urinary calculi; Z98.51 Tubal ligation status
CPT/HCPCS: 36415; 36600; 74177; 80053; 80307; 81001; 81025; 82805; 83690; 85025; 96361; 96374; 96375; 99285; J2405; J3010; J7030; Q9967

== ENCOUNTER 2020-01-13 19:56 | Emergency (ER) | payer OTHER ==
[~2020-01-13] VITALS: Ht 162.6 cm; Wt 64.0 kg
[~2020-01-13 19:56] MED LIST changes: +ONDA4TAB12 PO
[2020-01-13] MEDS ORDERED: KETOROLAC 30 MG/ML VIAL. IVP ONE (20:45)
[2020-01-13] MEDS ORDERED: ONDANSETRON PF 4 MG/2 ML VIAL. IVP ONE (20:45)
--- NOTE | 2020-01-13 20:48 | PHYS DOC ---
Past Medical History Past Medical History: Anemia, Depression, Kidney Stone, Other Additional Past Medical Histor: Hypoglycemia Past Surgical History: Tubal ligation Smoking Status: Never Smoker Alcohol Use: Rarely Drug Use: None General Adult EDM: Chief Complaint: HEADACHE HPI: HPI: 39-year-old female past medical history diabetes past surgical history of cholecystectomy presents with a chief complaint of right-sided headache and right sided abdominal pain for 2 days. Patient states her headache is located in the right temporal region with radiation to the right neck. Patient denies any visual changes fevers or neck pain. Patient also complains of right-sided a bdominal pain. Patient pain is located primarily periumbilical right lower quadrant. Patient states headache and abdominal pain started at the same time. Patient has associated nausea but denies any vomiting or diarrhea. Patient states her last bowel movement was 2 days ago. Patient states her last menstrual period ended this past . Patient states she has been taking [id number] ibuprofen with no relief. Last dose was 10 AM. Review of Systems: Review of Systems: Constitutional: Denies fever or chills. [] Eyes: Denies change in visual acuity. [] HENT: Denies nasal congestion or sore throat. [] Respiratory: Denies cough or shortness of breath. [] Cardiovascular: Denies chest pain or edema. [] GI: Positive abdominal pain, nausea, denies vomiting, bloody stools or diarrhea. [] : Denies dysuria. [] Musculoskeletal: Denies back pain or joint pain. [] Integument: Denies rash. [] Neurologic: Positive headache, denies focal weakness or sensory changes. [] Endocrine: Denies polyuria or polydipsia. [] Lymphatic: Denies swollen glands. [] Psychiatric: Denies depression or anxiety. [] Heart Score: Risk Factors: Risk Factors: DM, Current or recent (<one month) smoker, HTN, HLP, family history of CAD, obesity. Risk Scores: Score 0 - 3: 2.5% MACE over next 6 weeks - Discharge Home Score 4 - 6: 20.3% MACE over next 6 weeks - Admit for Clinical Observation Score 7 - 10: 72.7% MACE over next 6 weeks - Early Invasive Strategies Current Medications: Current Medications Medications (Trade) Dose Ordered Sig/Mariajose Start Time Stop Time Status Last Admin Dose Admin Ketorolac Tromethamine (Toradol 30mg Vial) 30 mg 1X ONCE 01/13/20 20:45 01/13/20 20:46 Ondansetron HCl (Zofran) 4 mg 1X ONCE 01/13/20 20:45 01/13/20 20:46 Allergies: Allergies: Allergies Coded Allergies Type Severity Reaction Last Updated Verified latex Allergy Intermediate redness and swelling 11/01/14 No Physical Exam: PE: Constitutional: Well developed, well nourished, no acute distress, non-toxic appearance. [] HENT: Normocephalic, atraumatic, bilateral external ears normal, oropharynx moist, no oral exudates, nose normal. [] Eyes: PERRLA, EOMI, conjunctiva normal, no discharge. [] Neck: Normal range of motion, no tenderness, supple, no stridor. [] Cardiovascular:Heart rate regular rhythm, no murmur [] Lungs & Thorax: Bilateral breath sounds clear to auscultation [] Abdomen: Bowel sounds normal, soft, tender to palpation periumbilical and right lower quadrant no rebound no guarding Skin: Warm, dry, no erythema, no rash. [] Back: No tenderness, no CVA tenderness. [] Extremities: No tenderness, no cyanosis, no clubbing, ROM intact, no edema. [] Neurologic: Alert and oriented X 3, normal motor function, normal sensory function, no focal deficits noted. [] Psychologic: Affect normal, judgement normal, mood normal. [] Current Patient Data: Vital Signs: Vital Signs Date Time Temp Pulse Resp B/P (MAP) Pulse Ox O2 Delivery O2 Flow Rate FiO2 01/13/20 20:00 98.2 98 16 134/65 (88) 98 Room Air 98.2 EKG: EKG: [] Radiology/Procedures: Radiology/Procedures: [] Impression: Patient was evaluated for chief complaint. Work-up consisted of laboratory analysis and radiologic imaging. Results reviewed and discussed with patient. Patient had CT abdomen no acute abnormalities of the right lower quadrant. Patient pain was treated with Toradol with mild relief. Patient was redosed w mike Bertrand for both her abdominal pain and her headache. Patient was discharged home with prescription [place]. Patient advised to follow- up with her primary care physician. Course & Med Decision Making: Course & Med Decision Making Pertinent Labs and Imaging studies reviewed. (See chart for details) [] Rachel Disclaimer: Dragon Disclaimer: This electronic medical record was generated, in whole or in part, using a voice recognition dictation system. Departure Departure Impression: Primary Impression: Abdominal pain Additional Impression: Headache Disposition: HOME, SELF-CARE Condition: STABLE Referrals: ERASMO WHALEY APRN (PCP) Patient Instructions: Abdominal Pain, General Headache Without Cause Scripts Hydrocodone/Apap 5-325 (NORCO 5-325 TABLET) 1 Each Tablet 1-2 TAB PO Q4-6HRS, #20 TAB Prov: CM MUSTAFA DO 01/13/20 Justicifation of Admission Dx: Justifications for Admission: Justification of Admission Dx: N/A CM MUSTAFA DO Jan 13, 2020 20:48
[2020-01-13 20:59] LABS: BILIRUBIN,URINE NEGATIVE (NEG); CLARITY,URINE CLEAR; COLOR,URINE YELLOW; NITRITE,URINE NEGATIVE (NEG); PROTEIN,URINE NEGATIVE (NEG-TRACE); UROBILINOGEN,URINE 0.2 mg/dL (0.2 mg/dL)
[2020-01-13 21:03] LABS: BASO % 0 % (0-3); EOS # 0.2 x10^3/uL (0.0-0.7); EOS % 2 % (0-3); HEMATOCRIT 38.4 % (36.0-47.0); HEMOGLOBIN 13.5 g/dL (12.0-15.5); LYMPH # 1.6 x10^3/uL (1.0-4.8); LYMPH % 22 % (24-48); MEAN CORPUSCULAR HEMOGLOBIN 30 pg (25-35); MEAN CORPUSCULAR HGB CONC 35 g/dL (31-37); MEAN CORPUSCULAR VOLUME 85 fL (79-100); MONO # 0.5 x10^3/uL (0.0-1.1); MONO % 7 % (0-9); NEUT % 69 % (31-73); PLATELET COUNT 229 x10^3/uL (140-400); RED BLOOD COUNT 4.51 x10^6/uL (3.50-5.40); RED CELL DISTRIBUTION WIDTH 12.5 % (11.5-14.5); WHITE BLOOD COUNT 7.3 x10^3/uL (4.0-11.0)
[2020-01-13 21:04] LABS: BACTERIA,URINE FEW /HPF (0-FEW); RBC,URINE 0 /HPF (0-2); SQUAMOUS EPITHELIAL CELL,UR MOD /LPF; WBC,URINE RARE /HPF (0-4)
[2020-01-13] MEDS ORDERED: CONTRAST GIVEN. MC PRN (21:15)
[2020-01-13] MEDS ORDERED: IOHEXOL 300 MG/ML 100ML VIAL. IV ONE (21:15)
[2020-01-13 21:16] LABS: CALCIUM 8.9 mg/dL (8.5-10.1); CREATININE 0.9 mg/dL (0.6-1.0); GFR 69.7; POTASSIUM 4.2 mmol/L (3.5-5.1)
[2020-01-13 21:21] LABS: ALBUMIN 3.9 g/dL (3.4-5.0); TOTAL BILIRUBIN 0.5 mg/dL (0.2-1.0); TOTAL PROTEIN 7.8 g/dL (6.4-8.2)
--- NOTE | 2020-01-13 21:44 | RAD ---
Exam: CT of abdomen and pelvis with contrast INDICATION: Right lower quadrant abdominal pain TECHNIQUE: Sequential axial images through the abdomen and pelvis obtained following the administration of 90 mL of Omni 300 IV contrast. Sagittal and coronal reformatted images were reconstructed from the axial data and reviewed. Comparisons: 12/07/2019 FINDINGS: Heart size is normal. No pericardial effusion. Visualized lung bases are clear. No pleural effusion. Liver, spleen, pancreas, and adrenals are unremarkable. Gallbladder surgically absent. Kidneys a straight symmetric enhancement. No perinephric inflammation or hydronephrosis. No renal or ureteral calculi are identified. Bladder is decompressed not well evaluated. Uterus is not enlarged. No abnormal adnexal mass. Large and small bowel are unremarkable. Appendix is normal. No free intra-abdominal air or fluid. No obstruction. Abdominal aorta has a normal course and caliber. Abdominal vasculature is patent. No enlarged intra-abdominal lymph nodes are identified. No suspicious osseous lesions or acute fractures. IMPRESSION: No acute process identified in the abdomen or pelvis. Exposure: One or more of the following in the visualized dose reduction techniques were utilized for this examination: 1. Automated exposure control 2. Adjustment of the MA and/or KV according to patient size 3. Use of iterative of reconstructive technique Electronically signed by: Jack Reyes MD (01/13/2020 9:41 PM) [id number]
[2020-01-13] MEDS ORDERED: HYDR-3164 PO (22:00)
[2020-01-13 22:04] VITALS: BP 102/56
== END 2020-01-13 22:20 | disposition home or self-care (01) ==
LOC: ER 19:56
DX: R10.33 Periumbilical pain (principal); R51 Headache; M54.2 Cervicalgia; R11.0 Nausea; R10.31 Right lower quadrant pain; Z87.442 Personal history of urinary calculi; Z98.51 Tubal ligation status
CPT/HCPCS: 36415; 74177; 80053; 81001; 83690; 85025; 96374; 96375; 99285; J1885; J2405; Q9967

== ENCOUNTER 2020-05-12 22:47 | Emergency (ER) | payer OTHER ==
[~2020-05-12] VITALS: Ht 162.6 cm; Wt 63.6 kg
[2020-05-12 23:14] LABS: BASO # 0.1 x10^3/uL (0.0-0.2); BASO % 1 % (0-3); EOS # 0.2 x10^3/uL (0.0-0.7); EOS % 2 % (0-3); HEMATOCRIT 35.9 % (36.0-47.0); HEMOGLOBIN 12.7 g/dL (12.0-15.5); LYMPH # 1.9 x10^3/uL (1.0-4.8); LYMPH % 19 % (24-48); MEAN CORPUSCULAR HEMOGLOBIN 30 pg (25-35); MEAN CORPUSCULAR HGB CONC 35 g/dL (31-37); MEAN CORPUSCULAR VOLUME 84 fL (79-100); MONO # 0.7 x10^3/uL (0.0-1.1); MONO % 7 % (0-9); NEUT # 7.2 x10^3/uL (1.8-7.7); NEUT % 71 % (31-73); PLATELET COUNT 237 x10^3/uL (140-400); RED BLOOD COUNT 4.26 x10^6/uL (3.50-5.40); RED CELL DISTRIBUTION WIDTH 12.6 % (11.5-14.5); WHITE BLOOD COUNT 10.2 x10^3/uL (4.0-11.0)
[2020-05-12] MEDS ORDERED: DEXAMETHASONE SOD PHOS 4 MG/ML VIAL PO ONE (23:15)
--- NOTE | 2020-05-12 23:19 | PHYS DOC ---
Past Medical History Past Medical History: Anemia, Depression, Kidney Stone, Other Additional Past Medical Histor: Hypoglycemia Past Surgical History: Tubal ligation Smoking Status: Never Smoker Alcohol Use: Rarely Drug Use: None General Adult EDM: Chief Complaint: SHORTNESS OF BREATH HPI: HPI: Patient is a 40 year old female past medical history of diabetes anxiety steve canales and a history of positive COVID-19 on 04/27 presents with a chief complaint of chest discomfort. Patient states chest discomfort started around 11 AM this morning. Patient discomfort located across her chest shoulder to shoulder. Patient states she feels a little shortness of breath but denies any cough. Review of Systems: Review of Systems: Constitutional: Denies fever or chills. [] Eyes: Denies change in visual acuity. [] HENT: Denies nasal congestion or sore throat. [] Respiratory: Denies cough positive shortness of breath. [] Cardiovascular: Positive chest pain GI: Denies abdominal pain, nausea, vomiting, bloody stools or diarrhea. [] : Denies dysuria. [] Musculoskeletal: Denies back pain or joint pain. [] Integument: Denies rash. [] Neurologic: Denies headache, focal weakness or sensory changes. [] Endocrine: Denies polyuria or polydipsia. [] Lymphatic: Denies swollen glands. [] Psychiatric: Denies depression or anxiety. [] Heart Score: Risk Factors: Risk Factors: DM, Current or recent (<one month) smoker, HTN, HLP, family history of CAD, obesity. Risk Scores: Score 0 - 3: 2.5% MACE over next 6 weeks - Discharge Home Score 4 - 6: 20.3% MACE over next 6 weeks - Admit for Clinical Observation Score 7 - 10: 72.7% MACE over next 6 weeks - Early Invasive Strategies Current Medications: Current Medications Medications (Trade) Dose Ordered Sig/Mariajose Start Time Stop Time Status Last Admin Dose Admin Dexamethasone Sodium Phosphate (Decadron) 10 mg 1X ONCE 05/12/20 23:15 05/12/20 23:16 DC 05/12/20 23:05 10 MG Allergies: Allergies: Allergies Coded Allergies Type Severity Reaction Last Updated Verified latex Allergy Intermediate redness and swelling 11/01/14 No Physical Exam: PE: Constitutional: Well developed, well nourished, no acute distress, non-toxic appearance. [] HENT: Normocephalic, atraumatic, bilateral external ears normal, oropharynx moist, no oral exudates, nose normal. [] Eyes: PERRLA, EOMI, conjunctiva normal, no discharge. [] Neck: Normal range of motion, no tenderness, supple, no stridor. [] Cardiovascular:Heart rate regular rhythm, no murmur [] Lungs & Thorax: Bilateral breath sounds clear to auscultation [] Abdomen: Bowel sounds normal, soft, no tenderness, no masses, no pulsatile masses. [] Skin: Warm, dry, no erythema, no rash. [] Back: No tenderness, no CVA tenderness. [] Extremities: No tenderness, no cyanosis, no clubbing, ROM intact, no edema. [] Neurologic: Alert and oriented X 3, normal motor function, normal sensory function, no focal deficits noted. [] Psychologic: Affect normal, judgement normal, mood normal. [] Current Patient Data: Labs: Laboratory Tests Test 05/12/20 23:10 White Blood Count 10.2 x10^3/uL (4.0-11.0) Red Blood Count 4.26 x10^6/uL (3.50-5.40) Hemoglobin 12.7 g/dL (12.0-15.5) Hematocrit 35.9 % (36.0-47.0) L Mean Corpuscular Volume 84 fL (79-100) Mean Corpuscular Hemoglobin 30 pg (25-35) Mean Corpuscular Hemoglobin Concent 35 g/dL (31-37) Red Cell Distribution Width 12.6 % (11.5-14.5) Platelet Count 237 x10^3/uL (140-400) Neutrophils (%) (Auto) 71 % (31-73) Lymphocytes (%) (Auto) 19 % (24-48) L Monocytes (%) (Auto) 7 % (0-9) Eosinophils (%) (Auto) 2 % (0-3) Basophils (%) (Auto) 1 % (0-3) Neutrophils # (Auto) 7.2 x10^3/uL (1.8-7.7) Lymphocytes # (Auto) 1.9 x10^3/uL (1.0-4.8) Monocytes # (Auto) 0.7 x10^3/uL (0.0-1.1) Eosinophils # (Auto) 0.2 x10^3/uL (0.0-0.7) Basophils # (Auto) 0.1 x10^3/uL (0.0-0.2) Laboratory Tests 05/12/20 23:10 EKG: EKG: [] Radiology/Procedures: Radiology/Procedures: [] Impression: FINDINGS: The cardiomediastinal silhouette and pulmonary vessels are within normal limits. The lung and pleural spaces are clear. IMPRESSION: No acute cardiopulmonary process. Electronically signed by: Jack Reyes MD (05/12/2020 11:32 PM) [id number] Course & Med Decision Making: Course & Med Decision Making Pertinent Labs and Imaging studies reviewed. (See chart for details) [] Patient was evaluated for chief complaint. Work-up consisted of laboratory analysis radiologic imaging and EKG. Results reviewed and discussed with patient. Chest x-ray within normal limits lab work normal D-dimer normal. Patient's vital signs stable oxygen saturation 99% on room air. Treatment included Decadron will prescribe patient Zithromax. Patient to follow-up with primary care physician. Rachel Disclaimer: Rachel Disclaimer: This electronic medical record was generated, in whole or in part, using a voice recognition dictation system. Departure Departure Impression: Primary Impression: Chest pain Additional Impressions: Dyspnea COVID-19 Disposition: 01 DC HOME SELF CARE/HOMELESS Condition: STABLE Referrals: ERASMO WHALEY APRN (PCP) Patient Instructions: Chest Pain (Nonspecific), Shortness of Breath Additional Instructions: You have been tested for or diagnosed with COVID-19. It is an infection caused by a new type of coronavirus. COVID-19 will cause cold-like or mild flu symptoms in most. It can cause more severe symptoms like problems breathing in some. There is no treatment for COVID-19. The body will clear the infection over time. Self-care will help to ease discomfort. Steps to Take: Self-Care Rest as needed. Healthy habits may help you feel better. Steps include: Choose healthy foods including fruits and vegetables. Drink water throughout the day. Get plenty of sleep each night. If you smoke, try to quit. It may ease breathing. Avoid alcohol. Keep Others Healthy The virus can spread to others. Droplets are released every time you sneeze or cough. The droplets can get into the mouth, nose, or eyes of people near you and lead to infection. To lower the chances of spreading COVID-19 to others: Stay at home until your doctor has said it is safe to leave. If you tested positive this will mean staying isolated until both of the following are true: At least 7 days have passed since the start of illness. You are free of fever for at least 72 hours without the use of medicine. During this time: - Avoid public areas, events, or transportation. Do not return to work or school until your doctor has said it is safe to do so. - Call ahead if you need to go to a medical center. Let them know you may have COVID-19. It will help them guide you where to go. They may also ask you to wear a facemask when you come to the office. - If you call for emergency medical services, let them know you may have COVID- 19. While at home: - Try to avoid close contact with others. Stay about 6 feet away. - If possible, spend most of your time in a separate room from others. - Use a face mask if you will be in close contact with others such as sharing a room or vehicle. - Have someone wipe down common surfaces in the home. Use household occupational health physiotherapist ev chris day on areas like doorknobs, counters, or sinks. - Cough or sneeze into a tissue. Throw the tissue away right after use. If a tissue is not available, cough or sneeze into your elbow. - Wash your hands often. Wash them after sneezing or coughing. Use soap and water and wash for at least 20 seconds. Alcohol based hand card cleaner can be used if soap and water is not available. - Do not prepare food for others. Avoid sharing personal items like forks, spoons, or toothbrushes. - Avoid close contact with pets while you are sick. There is no evidence of the virus passing to pets. This is a safety step until more is known about this virus. Isolation can be frustrating. Social interaction can help. Keep in touch with friends and family through phone and tech options. You can still interact with others in your home, just keep a safe distance of about 6 feet. Follow-up: Your doctors office will check in with you to see if there are any changes in your health. You may be asked to keep track of symptoms to share with them. They will also let you know when you are clear to be in public again. Problems to Look Out For: Contact your doctor if your recovery is not going as you expect. Get emergency care if you have problems such as: - Trouble breathing - Nonstop chest pain or pressure - Changes in awareness, confusion, or problems waking - Lips or face have bluish color - Worsening of symptoms If you think you have an emergency, call for emergency medical services right away. As taken from [facility] Azithromycin (ZITHROMAX) 250 Mg Tablet 1 PKG PO UD, #6 TAB Prov: CM MUSTAFA I DO 05/12/20 CM MUSTAFA I DO May 12, 2020 23:19
[2020-05-12 23:22] LABS: CALCIUM 9.4 mg/dL (8.5-10.1); CREATININE 0.8 mg/dL (0.6-1.0); GFR 79.4; POTASSIUM 3.7 mmol/L (3.5-5.1)
[2020-05-12 23:27] LABS: ALBUMIN 3.8 g/dL (3.4-5.0); TOTAL BILIRUBIN 0.3 mg/dL (0.2-1.0); TOTAL PROTEIN 7.5 g/dL (6.4-8.2)
--- NOTE | 2020-05-12 23:35 | RAD ---
Exam: Chest one view INDICATION: Shortness of breath TECHNIQUE: Frontal view of the chest Comparisons: 11/04/2018 FINDINGS: The cardiomediastinal silhouette and pulmonary vessels are within normal limits. The lung and pleural spaces are clear. IMPRESSION: No acute cardiopulmonary process. Electronically signed by: Jack Reyes MD (05/12/2020 11:32 PM) [id number]
[2020-05-12] MEDS ORDERED: AZIT250T PO (23:40)
[2020-05-12 23:50] VITALS: BP 140/62
--- NOTE | 2020-05-13 17:44 | EKG ---
[facility] [address] [place] [address] Test Date: 2020-05-12 Test Time: 23:03:18 Pat Name: DEISY MERA Department: Room: Gender: F Automotive Repair Technician: : 1980 Requested By: CM UMSTAFA Order Number: [id number] Reading MD: Measurements Intervals Amity Rate: 85 P: 47 LA: 138 QRS: 47 QRSD: 70 T: 20 QT: 332 QTc: 400 Interpretive Statements SINUS RHYTHM NORMAL ECG RI6.02 No previous ECG available for comparison
== END 2020-05-12 23:52 | disposition home or self-care (01) ==
LOC: ER 22:47
DX: U07.1 COVID-19 (principal); R07.89 Other chest pain; R06.02 Shortness of breath
CPT/HCPCS: 36415; 71045; 80053; 84484; 85025; 85379; 93005; 99285; J1100

== ENCOUNTER 2020-08-11 23:14 | Emergency (ER) | payer OTHER ==
[~2020-08-11] VITALS: Ht 162.6 cm; Wt 65.9 kg
[~2020-08-11 23:14] MED LIST changes: +AZIT250T PO
--- NOTE | 2020-08-12 00:12 | PHYS DOC ---
Past Medical History Past Medical History: Anemia, Asthma, Depression, Diabetes-Type II, Kidney Stone, Migraines, Other Additional Past Medical Histor: Hypoglycemia Past Surgical History: Cholecystectomy, Tubal ligation Smoking Status: Former Smoker Alcohol Use: Rarely Drug Use: None Adult General Chief Complaint Chief Complaint: HEAD INJURY/TRAUMA HPI HPI Patient is a 40 year old with a past medical history including asthma, anemia, diabetes, migraine presents emergency department after mechanical fall. Patient states he is getting out of the shower when she slipped on a tile falling forward and striking her left sikhism against the bathtub. Since that has noted some mild nausea and blurred vision. Also complains of neck pain. Patient supervision is generalized and she had some fluttering in her eye. Denies any back pain, chest pain, abdominal pain, extremity pain Review of Systems Review of Systems Constitutional: Denies fever or chills [] Eyes: Denies change in visual acuity, redness, or eye pain [] HENT: Denies nasal congestion or sore throat [] Respiratory: Denies cough or shortness of breath [] Cardiovascular: No additional information not addressed in HPI [] GI: Denies abdominal pain, nausea, vomiting, bloody stools or diarrhea [] : Denies dysuria or hematuria [] Musculoskeletal: Denies back pain or joint pain [] Integument: Denies rash or skin lesions [] Neurologic: Denies headache, focal weakness or sensory changes [] Endocrine: Denies polyuria or polydipsia [] All other systems were reviewed and found to be within normal limits, except as documented in this note. Allergies Allergies Allergies Coded Allergies Type Severity Reaction Last Updated Verified latex Allergy Intermediate redness and swelling 11/01/14 No Physical Exam Physical Exam Constitutional: Well developed, well nourished, no acute distress, non-toxic appearance. [] HENT: Normocephalic, atraumatic, bilateral external ears normal, oropharynx moist, no oral exudates, nose normal. [] Eyes: PERRLA, EOMI, conjunctiva normal, no discharge. [] Neck: Normal range of motion, moderate midline tenderness at C3-C4, supple, no stridor. [] Cardiovascular:Heart rate regular rhythm, no murmur [] Lungs & Thorax: Bilateral breath sounds clear to auscultation [] Abdomen: Bowel sounds normal, soft, no tenderness, no masses, no pulsatile masses. [] Skin: Warm, dry, no erythema, no rash. [] Back: No tenderness, no CVA tenderness. [] Extremities: No tenderness, no cyanosis, no clubbing, ROM intact, no edema. [] Neurologic: Alert and oriented X 3, normal motor function, normal sensory function, no focal deficits noted. [] Psychologic: Affect normal, judgement normal, mood normal. [] Current Patient Data Vital Signs Vital Signs Date Time Temp Pulse Resp B/P (MAP) Pulse Ox O2 Delivery O2 Flow Rate FiO2 08/11/20 23:15 98.6 79 17 120/80 (93) 97 Room Air 98.6 Lab Values Laboratory Tests Test 08/11/20 23:54 POC Urine HCG, Qualitative Hcg negative (Negative) EKG EKG [] Radiology/Procedures Radiology/Procedures [] Course & Med Decision Making Course & Med Decision Making Pertinent Labs and Imaging studies reviewed. (See chart for details) 40-year-old female presented emergency department with a mechanical fall with evidence of mild left forehead contusion and complaining of blurred vision. Patient also has some midline cervical spine tenderness therefore we cannot rule out cervical spine fracture via Nexus criteria. will obtain a CT of the head and cervical spine to make sure there is no evidence of acute fracture. CT head and cervical spine are negative. There is cervical spine cleared by Nexus criteria. At this time will discharge home Dragon Disclaimer Dragon Disclaimer This electronic medical record was generated, in whole or in part, using a voice recognition dictation system. Departure Departure Impression: Primary Impression: Accidental fall Disposition: 01 DC HOME SELF CARE/HOMELESS Condition: GOOD Referrals: ERASMO WHALEY APRN (PCP) Patient Instructions: Head Injury, Adult Additional Instructions: EMERGENCY DEPARTMENT GENERAL DISCHARGE INSTRUCTIONS Thank you for coming to [facility] Emergency Department (ED) today and trusting us with you care. We trust that you had a positive experience in our Emergency Department. If you wish to speak to the department management, you may call the Director at [phone]. YOUR FOLLOW UP INSTRUCTIONS ARE FOLLOWS: 1. Do you have a private Doctor? If you do not have a private doctor, please ask for a resource list of physicians or clinics that may be able to assist you with follow up care. 2. The Emergency Physicain has interpreted your x-rays. The X-Ray specialist will also review them. If there is a change in the findings, you will be notified in 48 hours when at all possible. 3. A lab test or culture has been done, your results will be reviewed and you will be notified if you need a change in treatment. ADDITIONAL INSTRUCTIONS AND INFORMATION: 1. Your care today has been supervised by a physician who is specially trained in emergency care. Many problems require more than one evaluation for a complete diagnosis and treatment. We recommend that you schedule your follow up appointment as recommended to ensure complete treatment of you illness or injury. If you are unable to obtain follow up care and continue to have a problem, or if your condition worsens, we recommend that you return to the ED. 2. We are not able to safely determine your condition over the phone nor are we able to give sound medical advice over the phone. For these safety reasons, if you call for medical advice we will ask you to come to the ED for further evaluation. 3. If you have any questions regarding these discharge instructions please call the ED at [phone]. SAFETY INFORMATION: In the interest of safety, wellness, and injury prevention; we encourage you to wear your sealbelt, if you smoke; quite smoking, and we encourage family to use a protective helmet for bicycling and other sporting events that present an increased risk for head injury. IF YOUR SYMPTOMS WORSEN OR NEW SYMPTOMS DEVELOP, OR YOU HAVE CONCERNS ABOUT YOUR CONDITION; OR IF YOUR CONDITION WORSENS WHILE YOU ARE WAITING FOR YOUR FOLLOW UP APPOINTMENT; EITHER CONTACT YOUR PRIMARY CARE DOCTOR, THE PHYSICIAN WHOSE NAME AND NUMBER YOU WERE GIVEN, OR RETURN TO THE ED IMMEDIATELY. CHRISTELLE VENEGAS MD Aug 12, 2020 00:12
--- NOTE | 2020-08-12 01:01 | RAD ---
PQRS Compliance Statement: One or more of the following individualized dose reduction techniques were utilized for this examinat ion: 1. Automated exposure control 2. Adjustment of the mA and/or kV according to patient size 3. Use of iterative reconstruction technique CT HEAD AND CERVICAL SPINE WITHOUT CONTRAST History: Reason: fall / Spl. Instructions: / History: Comparison: CT head without contrast June 02, 2016. Procedure: Axial images are obtained of the head from the skull base through the vertex without IV co ntrast. Noncontrast helical CT of the cervical spine was performed. Axial, sagittal, and coronal rec onstructions were obtained. Findings: The ventricles and sulci are normal for the patient's age. No mass-effect, midline shift, hemorrhage or obvious acute infarction is identified. Basilar cistern s are patent. Bone windows demonstrate no significant calvarial abnormality. The visualized paranasal sinuses are clear. Mastoid air cells are well aerated. There is no evidence of acute fracture or acute malalignment of the cervical spine. The vertebral body height and alignment are maintained. There is mild disc space narrowing and endpla te spurring of C5/C6. The other disc spaces are maintained. There are no perched or jumped facet join ts. Visualized soft tissues of the neck demonstrate no significant abnormalities. The visualized lung api dariela are clear. IMPRESSION: 1. No acute intracranial abnormality. 2. No acute fracture of the cervical spine. Electronically signed by: Ruben Reyez MD (08/12/2020 12:58 AM) [facility]
[2020-08-12] MEDS ORDERED: IBUPROFEN 400 MG TABLET. PO ONE (01:30)
[2020-08-12 01:33] VITALS: BP 114/61
== END 2020-08-12 01:52 | disposition home or self-care (01) ==
LOC: ER 23:14
DX: S00.83XA Contusion of other part of head, initial encounter (principal); M54.2 Cervicalgia; H53.8 Other visual disturbances; R11.0 Nausea; D64.9 Anemia, unspecified; J45.909 Unspecified asthma, uncomplicated; F32.9 Major depressive disorder, single episode, unspecified; G43.909 Migraine, unspecified, not intractable, without status migrainosus; E11.9 Type 2 diabetes mellitus without complications; F17.200 Nicotine dependence, unspecified, uncomplicated; Z87.442 Personal history of urinary calculi; Z90.49 Acquired absence of other specified parts of digestive tract; Z98.51 Tubal ligation status; W01.0XXA Fall on same level from slipping, tripping and stumbling without subsequent striking against object, initial encounter; Y93.89 Activity, other specified; Y92.89 Other specified places as the place of occurrence of the external cause; Y99.8 Other external cause status
CPT/HCPCS: 70450; 72125; 81025; 99285

== ENCOUNTER 2020-12-03 10:38 | Emergency (ER) | payer OTHER ==
[~2020-12-03] VITALS: Ht 162.6 cm; Wt 65.0 kg
--- NOTE | 2020-12-03 13:42 | PHYS DOC ---
Past Medical History Past Medical History: Anemia, Asthma, Depression, Diabetes-Type II, Kidney Stone, Migraines, Other Additional Past Medical Histor: Hypoglycemia Past Surgical History: Cholecystectomy, Tubal ligation Smoking Status: Former Smoker Alcohol Use: None Drug Use: None General Adult EDM: Chief Complaint: UPPER EXTREMITY PAIN HPI: HPI: Patient is a 40 year old female who presents with right shoulder pain for the last 2 weeks the pain goes from the right top of the shoulder at the base of the neck and goes down the upper part of her arm on the ulnar side. States that sharp and shooting. She states yesterday she went to open up a bag yesterday and her arm kind of jerked outward to make the pain worse. She rates an 8 out of 10. She last took ibuprofen at midnight. She denies numbness, focal weakness, chest pain, shortness of breath, dizziness, headache, injury, fall, abdominal pain, nausea, vomiting, back pain. Patient has a history of migraine, anemia, asthma, diabetes. Review of Systems: Review of Systems: Constitutional: Denies fever or chills. [] Eyes: Denies change in visual acuity. [] HENT: Denies nasal congestion or sore throat. [] Respiratory: Denies cough or shortness of breath. [] Cardiovascular: Denies chest pain or edema. [] GI: Denies abdominal pain, nausea, vomiting, bloody stools or diarrhea. [] : Denies dysuria. [] Musculoskeletal: Denies back pain. + Right shoulder joint pain. [] Integument: Denies rash. [] Neurologic: Denies headache, focal weakness or sensory changes. [] Endocrine: Denies polyuria or polydipsia. [] Lymphatic: Denies swollen glands. [] Psychiatric: Denies depression or anxiety. [] Heart Score: C/O Chest Pain: No Risk Factors: Risk Factors: DM, Current or recent (<one month) smoker, HTN, HLP, family history of CAD, obesity. Risk Scores: Score 0 - 3: 2.5% MACE over next 6 weeks - Discharge Home Score 4 - 6: 20.3% MACE over next 6 weeks - Admit for Clinical Observation Score 7 - 10: 72.7% MACE over next 6 weeks - Early Invasive Strategies Current Medications: Current Medications Medications (Trade) Dose Ordered Sig/Mariajose Start Time Stop Time Status Last Admin Dose Admin Ibuprofen (Motrin) 800 mg 1X ONCE 12/03/20 13:30 12/03/20 13:31 DC Allergies: Allergies: Allergies Coded Allergies Type Severity Reaction Last Updated Verified latex Allergy Intermediate redness and swelling 11/01/14 No Physical Exam: PE: Constitutional: Well developed, well nourished, no acute distress, non-toxic appearance. [] HENT: Normocephalic, atraumatic, bilateral external ears normal, oropharynx moist, no oral exudates, nose normal. [] Eyes: PERRLA, EOMI, conjunctiva normal, no discharge. [] Neck: Normal range of motion, no tenderness, supple, no stridor. [] Cardiovascular:Heart rate regular rhythm, no murmur [] Lungs & Thorax: Bilateral breath sounds clear to auscultation [] Abdomen: Bowel sounds normal, soft, no tenderness, no masses, no pulsatile masses. [] Skin: Warm, dry, no erythema, no rash. [] Back: No tenderness, no CVA tenderness. [] Extremities: No tenderness, no cyanosis, no clubbing, right shoulder ROM intact but limited due to pain, no edema. [] Neurologic: Alert and oriented X 3, normal motor function, normal sensory function, no focal deficits noted. [] Psychologic: Affect normal, judgement normal, mood normal. [] Current Patient Data: Vital Signs: Vital Signs Date Time Temp Pulse Resp B/P (MAP) Pulse Ox O2 Delivery O2 Flow Rate FiO2 12/03/20 12:20 98.3 86 18 98/54 (69) 98 Room Air 98.3 EKG: EK and read by Dr. Barragan is sinus rhythm no STEMI Radiology/Procedures: Radiology/Procedures: [] Impression: [facility] [address] [place], [place] [id number] IMAGING REPORT Signed PATIENT: DEISY BURTON ACCOUNT: [id number] : 1980 LOCATION: ER AGE: 40 SEX: F EXAM STATUS: REG ER ORD. PHYSICIAN: JERRY THOMAS APRN REASON: PAIN PROCEDURE: SHOULDER 2+V RIGHT Site ID: [id number] EXAMINATION: XR SHOULDER_RIGHT 2+ VIEWS. HISTORY: 40 years Female Reason: PAIN / Spl. Instructions: / History: . COMPARISON: None. FINDINGS: No fracture, dislocation or radiopaque foreign body. The joint spaces and articular surfaces appear unremarkable. IMPRESSION: Unremarkable exam. Electronically signed by: Paula Lenz MD (12/03/2020 1:51 PM) [id number] DICTATED and SIGNED BY: PAULA LENZ MD DATE: 12/03/20 [id number] Course & Med Decision Making: Course & Med Decision Making Pertinent Labs and Imaging studies reviewed. (See chart for details) See HPI. Alert and oriented x4. Patient states her right shoulder she cannot lift all the way outward due to pain. There is no swelling, redness, heat, deformity to the joint. There is no tenderness with palpation. Radial pulse strong and present. Cap refill less than 2 seconds. Full strength and no focal weakness. [] Dragon Disclaimer: Dragon Disclaimer: This electronic medical record was generated, in whole or in part, using a voice recognition dictation system. Departure Departure Impression: Primary Impression: Shoulder pain, right Qualified Codes: M25.511 - Pain in right shoulder Disposition: HOME / SELF CARE / HOMELESS Condition: STABLE Referrals: ERASMO WHALEY APRN (PCP) CARMEN BAILEY MD Patient Instructions: Cervical Radiculopathy, [id number] Additional Instructions: Follow-up with primary care physician as needed. Take medication as prescribed and with food. Reversal medications will make you sleepy do not drive or drink any alcohol with these medications. If any symptoms worsen he can return to the ER. Scripts Methylprednisolone (MEDROL) 4 Mg Tab.ds.pk 1 PKG PO UD, #1 PKG Prov: JERRY THOMAS TRAP OPERATOR 12/03/20 Ibuprofen (IBUPROFEN) 600 Mg Tablet 600 MG PO PRN Q6HRS PRN for INFLAMMATION, #26 TAB Prov: JERRY THOMAS APRN 12/03/20 JERRY THOMAS APRN December 03, 2020 13:42
--- NOTE | 2020-12-03 13:53 | RAD ---
Site ID: [id number] EXAMINATION: XR SHOULDER_RIGHT 2+ VIEWS. HISTORY: 40 years Female Reason: PAIN / Spl. Instructions: / History: . COMPARISON: None. FINDINGS: No fracture, dislocation or radiopaque foreign body. The joint spaces and articular surfaces appea r unremarkable. IMPRESSION: Unremarkable exam. Electronically signed by: Freddie Lenz MD (12/03/2020 1:51 PM) [id number]
[2020-12-03] MEDS ORDERED: IBUP-1007 PO (13:59)
[2020-12-03] MEDS ORDERED: METH4TAB2 PO (13:59)
[2020-12-03] MEDS: IBUPROFEN 400 MG TABLET. PO ONE (14:25)
[2020-12-03 15:00] VITALS: BP 100/62
--- NOTE | 2020-12-03 15:48 | EKG ---
[facility] [address] [place] [address] Test Date: 2020-12-03 Test Time: 14:25:01 Pat Name: DEISY BURTON Department: Room: Gender: F [employer]: : 1980 Requested By: JERRY THOMAS Order Number: [id number] Reading MD: Measurements Intervals [place] Rate: 65 P: 34 AL: 142 QRS: 48 QRSD: 72 T: 16 QT: 388 QTc: 408 Interpretive Statements SINUS RHYTHM QRS(T) CONTOUR ABNORMALITY CONSIDER ANTEROLATERAL MYOCARDIAL DAMAGE POSSIBLY ABNORMAL ECG RI6.01 No previous ECG available for comparison
== END 2020-12-03 15:10 | disposition home or self-care (01) ==
LOC: ER 10:38
DX: M25.511 Pain in right shoulder (principal); J45.909 Unspecified asthma, uncomplicated; E11.9 Type 2 diabetes mellitus without complications; G43.909 Migraine, unspecified, not intractable, without status migrainosus; Z87.891 Personal history of nicotine dependence; Z91.040 Latex allergy status
CPT/HCPCS: 73030; 93005; 99283; A4565

== ENCOUNTER → 2021-08-18 | Outpatient (CLI) | payer OTHER ==
[~2021-08-18] MED LIST changes: +DICY20TA PO; -DICY20TA3 PO; +IBUP-1007 PO; +METH4TAB2 PO
--- NOTE | 2021-08-18 15:44 | RAD ---
EXAM: XR LUMBAR SPINE 2-3V 08/18/2021 2:10 PM CLINICAL INDICATION: Neuropathy, right thigh pain COMPARISON: None TECHNIQUE: AP, lateral, and coned-down lateral view of the lumbar spine FINDINGS: There are 5 nonrib-bearing lumbar vertebral bodies. There is no acute fracture. Alignment is normal. There is minimal rightward curvature at the thoracolumbar junction. Disc spaces and facet joints are maintained. Sacroiliac joints are unremarkable. Cholecystectomy clips are noted. IMPRESSION: Essentially normal lumbar spine radiograph. Electronically signed by: Talisha Gonzalez MD (08/18/2021 3:41 PM) [id number]
[2021-08-19 19:18] LABS: ANA INTERP Negative (.)
[2021-08-20 11:22] LABS: ALPHA 1 0.2 g/dL (0.0-0.4); ALPHA 2 0.8 g/dL (0.4-1.0); BETA 1.2 g/dL (0.7-1.3); GAMMA 1.1 g/dL (0.4-1.8); PROTEIN TOTAL 7.3 g/dL (6.0-8.5); SPEP AG RATIO 1.2 (0.7-1.7)
== END ==
LOC: LAB 13:50
PROVIDERS: ATTEND Nurse Practitioner Family
DX: G62.9 Polyneuropathy, unspecified (principal); M79.651 Pain in right thigh; Z90.49 Acquired absence of other specified parts of digestive tract
CPT/HCPCS: 36415; 72100; 82607; 82746; 84165; 84443; 85651; 86038; 86141

== ENCOUNTER → 2021-09-17 | Outpatient (CLI) | payer OTHER ==
--- NOTE | 2021-09-17 16:45 | KCIC ---
MRI brain without contrast HISTORY: Daily headache. Migraine without aura and without status migrainosus, not intractable. COMPARISON: CT head August 12, 2020 FINDINGS: No acute ischemic infarction. No cytotoxic edema of the brain on the DWI/ADC sequences. No Chiari malformation. There is a small cortical cystic focus measuring 4 mm with a thin rim of T2 hype rintense gliosis at the anterior right temporal lobe axial T2 weighted image 9 consistent with a dila марина perivascular space as there is a small tortuous middle cerebral arterial branch adjacent of this, this is an anatomic variant. There is no vasogenic edema of the brain. There is no white matter lesi on of the brain. Intracranial vascular flow voids are intact. Intracranial vascular flow voids are in tact. No intracranial hemorrhage, mass, hydrocephalus, extra-axial fluid collection or infarction. Or bits and mastoids are unremarkable. IMPRESSION: Normal exam. Electronically signed by: Lloyd Bello MD (09/17/2021 4:43 PM) [facility]
== END ==
LOC: KCIC MRI 13:51
PROVIDERS: ATTEND Nurse Practitioner Family
DX: G43.009 Migraine without aura, not intractable, without status migrainosus (principal)
CPT/HCPCS: 70551

== ENCOUNTER → 2021-11-13 | Outpatient (CLI) | payer OTHER ==
--- NOTE | 2021-11-13 17:07 | KCIC ---
EXAM: Lumbar spine MRI without contrast. HISTORY: Right thigh pain. Back pain. TECHNIQUE: Multiplanar, multisequence magnetic resonance imaging of the lumbar spine was performed wi thout contrast. COMPARISON: None. FINDINGS: There is mild lumbar hyperlordosis. There is no listhesis. The vertebral bodies are normal in height. There is no suspicious osseous lesion. There is no acute or subacute fracture. The conus t erminates at T12. At L1-2, L2-L3 and L3-L4, there is no stenosis. At L4-L5, there is a suspected shallow left extraforaminal to lateral disc protrusion. There is mild left facet arthropathy. There is no stenosis. At L5-S1, there are shallow bilateral foraminal to lateral disc protrusions and endplate osteophytosi s. There is moderate left facet arthropathy. 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 There is mild bilateral foraminal stenosis with abutment the exiting L5 nerve roots. IMPRESSION: Degenerative change at the lower lumbar levels, described in detail above. This is associ ated with mild bilateral foraminal stenosis and abutment the exiting L5 nerve roots at L5-S1. Electronically signed by: Philomena Pretty MD (11/13/2021 5:05 PM) [id number]
== END ==
LOC: KCIC MRI 14:17
PROVIDERS: ATTEND Nurse Practitioner Family
DX: M47.26 Other spondylosis with radiculopathy, lumbar region (principal); M51.27 Other intervertebral disc displacement, lumbosacral region; M48.8X7 Other specified spondylopathies, lumbosacral region; M48.07 Spinal stenosis, lumbosacral region; M25.78 Osteophyte, vertebrae; M40.46 Postural lordosis, lumbar region; M79.651 Pain in right thigh; M53.3 Sacrococcygeal disorders, not elsewhere classified
CPT/HCPCS: 72148